=== PATIENT | male | born 1935 | race Caucasian/White ===

== ENCOUNTER 2025-02-24 22:39 | Observation (INO) | payer OTHER, SELFPAY ==
[2025-02-24] VITALS (8 sets, daily range): BP systolic 120–141; BP diastolic 55–68; BMI 27.8
[2025-02-24 19:38] LABS: Hematocrit 39.2 % (39.0-52.0); Hemoglobin 13.4 g/dL (13.0-18.0); Mean Corp Hgb Conc. 34.2 g/dL (33.0-37.0); Mean Corpuscular Volume 97.3 fL (80.0-94.0); Nucleated Red Blood Cells % 0 % (-); Platelet Count 182 10^3/uL (130-400); Red Cell Dist. Width 12.2 % (11.5-14.5)
[2025-02-24 19:56] LABS: ALT (SGPT) 20 U/L (0-50); AST (SGOT) 25 U/L (17-59); Albumin 4.4 g/dl (3.5-5.0); Alkaline Phosphatase 50 U/L (38-126); Blood Urea Nitrogen 22 mg/dl (9-20); Calcium 9.5 mg/dl (8.4-10.2); Carbon Dioxide 27 mmol/L (22-30); Chloride 106 mmol/L (98-107); Estimated Creatinine Clearance 76 ml/min; Glucose 124 mg/dl (70-99); Potassium 4.4 mmol/L (3.5-5.1); Sodium 139 mmol/L (135-145); Total Protein 6.9 g/dl (6.3-8.2); eGFR > 60.00
[2025-02-24 20:07] LABS: Troponin I 0.016 ng/ml
--- NOTE | 2025-02-24 20:16 | ED.GENMED ---
History of Present Illness
<Mari Davila PA-C - Last Filed: 02/25/25 01:39>
General
Chief Complaint: Dizziness
Source: patient
Exam Limitations: none
Time Seen by Provider: 02/24/25 19:51
Nursing documentation reviewed up to this point in time: agreed with
History of Present Illness
History of Present Illness:
Patient is an 89-year-old male with history atrial fibrillation on Xarelto who presents emergency department after episode of confusion and weakness at home which started around 630PM. Patient son states that he got up from the dinner table around
630 and walked to the bathroom where he then became acutely confused and stated 'I am not sure why came here I do not have to go to the bathroom '. Patient son then states that he became extremely weak and was having difficulties walking. They
laid him on the ground and put his legs up. They did take his blood pressure and apparently was in the 100s/60s. Patient son states it was not obvious if 1 side of his body was weaker or overall generalized weakness.
His symptoms did improve while en route via EMS.
He denies any headache, neck pain, chest pain, shortness of breath, changes in vision. No fever or chills.
Patient states that his left leg may seem slightly weaker although at this may be chronic. 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
Patient does take Xarelto for atrial fibrillation although apparently is relatively noncompliant.
Past History
<Mari Davila PA-C - Last Filed: 02/25/25 01:39>
Past History
ED Past Medical History: Hypercholesterolemia and Hypothyroidism
Social History
Living: with family
Employment: Retired
Review of Systems
<Mari Davila PA-C - Last Filed: 02/25/25 01:39>
Review of Systems
Allergies reviewed?: Yes
All Other Systems: ROS reviewed and negative except as documented in HPI and ROS
Phy Exam
<Mari Davila PA-C - Last Filed: 02/25/25 01:39>
Physical Exam
Physical Exam:
Vitals: Patient's vital signs are stable. Afebrile
General: Patient is in no acute distress
Skin: Warm and dry, no rashes or lesions
Head: Normocephalic, atraumatic
Eyes: Sclera nonicteric. EOMs intact. No nystagmus.
Throat: Protecting airway
Neck: Normal ROM, no cervical spine tenderness, no meningismus
Cardiac: Regular rate and rhythm, no murmurs.
Pulm: Normal respiratory effort, no wheezes, rales, rhonchi heard on exam
Abdomen: Abdomen soft and nontender.
Extremities: Paralysis of left upper extremity. No drift in lower extremities. No evidence of cyanosis or edema
Neuro: AAOx3. CN II-XII grossly intact. No focal neurologic deficits. Fluent speech. Normal cerebellar exam. No facial droop.
Psychiatric: Normal affect.
Course
<Mari Davila PA-C - Last Filed: 02/25/25 01:39>
Orders/Labs/Results
Orders:
Orders
02/24/25 19:17
Electrocardiogram (*1) Urgent
Reason for Study: Other
Other Reason for Exam: dizzy
EKG- Treatment ONCE
02/24/25 19:29
Complete Blood Count/With Diff Urgent
Comprehensive Metabolic Panel Urgent
Troponin I Urgent
02/24/25 20:14
Electrocardiogram (*1) Urgent
Reason for Study: Fatigue / Weakness
EKG- Treatment ONCE
02/24/25 20:21
CT Head W/o Iv Contrast Urgent
Comment:
Reason For Exam: Weakness, AMS on eliquis
02/24/25 21:20
Urinalysis Reflex To Culture Urgent
Date Specimen was Collected: 02/24/25
Time Specimen was Collected: 21:18
Urine Microscopic Reflex Cult Urgent
02/24/25 22:26
Admit/Transfer Patient As Directed
Co-Sign Provider:
Level of Care: Observation services
Assign to:: Telemetry
Physician / Group: Rashard
Diagnosis: TIA / Syncope
Reason for Telemetry: Syncope
Date to Stop Telemetry: 02/26/25
Time to Stop Telemetry: 11:00
02/24/25 22:27
PRN Pain Medication Management As Directed
May give lesser potent ordered pain med per pt: Yes
preference::
Protocol:: Medication orders for pain may be administered in a
manner that supports deferring to patient preference
when the pt is:
- Requesting an ordered lesser potent pain medication.
Least to most potent pain medications are defined
as: acetaminophen < NSAID < tramadol < opioids
(morphine, oxycodone, hydromorphone).
- Requesting a lesser dose of the same medication IF
ORDERED.
- Requesting a less intrusive route of administration
if both routes are prescribed by the provider (PO <
IV).
02/24/25 22:28
Code Status As Directed
Resuscitation Status: Full Code
02/25/25 00:27
Acetaminophen [Tylenol/Feverall] 650 mg RECTAL Q4HPRN PRN
Acetaminophen [Tylenol] 650 mg PO Q4HPRN PRN
02/25/25 00:27
Echo 2D MMode Color/Doppler Routine
Reason for Study: stroke/TIA, possible syncope
Case Management Consult ONCE
Case Management Consult: Discharge Planning
Comment: stroke/tia
Consult Notification Routine
Specialty to Notify: Neurology
DIETARY IP CONSULT Routine
Reason for Consult: stroke/TIA
NEUROLOGY CONSULT Routine
Consulting Provider: Riya Forrester
Was physician already notified: No
Reason for consult: Transient Confusion
Knife Changer Routine
MA [place] Routine
Comment:
Reason For Exam: stroke/TIA
Recent pill cam endoscopy?: No
MA Neck With Contrast Routine
Comment:
Reason For Exam: stroke/TIA
Recent pill cam endoscopy?: No
MR Brain Without Contrast Routine
Comment:
Reason For Exam: stroke/TIA
Recent pill cam endoscopy?: No
Activity As Directed
Activity Level: Out of Bed-Early Mobility
With Assistance
Anti-embolism (RENATA) Hose As Directed
Type: Knee high
NIH Stroke Scale As Directed
Directions: Per protocol
Comment: every shift and with any change in condition or mental status
Neurological Checks As Directed
Frequency: q4h
Additional Instructions:: q4h x 24h upon admission to the floor, then qshift & with any change in condition
and mental status
Patient Education As Directed
Type: Stroke education packet
Comment: provide to patient and family
Pneumatic Compression Sleeves As Directed
Type: Knee high
Swallow Screening CVA/TIA ONLY As Directed
Comment: NPO until swallowing screening completed
If patient FAILS swallow screening:: NPO, Speech Therapy consult, Aspiration Precautions
If patient PASSES swallow screening, diet:: Cholesterol Lowering
Above diet order entered?: Yes- passed screening
Vital Signs As Directed
Frequency: Per unit guidelines
Ot Eval And Treat Routine
Pt Eval And Treat Routine
Activity Level: Out of Bed-Early Mobility
Speech Therapy Eval & Treat Routine
DX Deep Vein Thrombosis Video Routine
02/25/25 06:00
Basic Metabolic Panel IN AM
Cardiovascular Evaluation IN AM
Complete Blood Count/No Diff IN AM
Glycohemoglobin (HgbA1c) IN AM
Magnesium IN AM
TSH Reflex To Free T4 IN AM
02/25/25 08:00
Aspirin Chewable [Low Strength Aspirin] 81 mg PO DAILY
02/25/25 18:00
Atorvastatin [Lipitor] 20 mg PO QPM
02/26/25 11:00
DC Protocol for Telemetry ONCE
Abnormal Lab Results
02/24/25 02/24/25
19:29 21:20
RBC 4.03 L 10^6/uL
(4.70-6.10)
MCV 97.3 H fL
(80.0-94.0)
MCH 33.3 H pg
(27.0-31.0)
Absolute Lymphs (auto) 0.8 L 10^3/uL
(1.2-3.4)
Neutrophils % 75.4 H %
(42.2-75.2)
Lymphocytes % 13.2 L %
(20.5-51.1)
Monocytes % 9.7 H %
(1.7-9.3)
BUN 22 H mg/dl
(9-20)
Glucose 124 H mg/dl
(70-99)
Ur Occult Blood Reflex 2+ A
(Negative)
Urine Urobilinogen 2+ A
(Neg - 1+)
Urine RBC 16-20 A /HPF
(0-2)
Urine Bacteria (Reflex) Few A
(Negative)
Urine Albumin (Reflex) 1+ A
(Neg - Trace)
02/24/25 19:29
02/24/25 19:29
Vital Signs
Initial and Last Documented VS:
Initial Vital Signs
Pulse Resp
64 17
02/24/25 19:15 02/24/25 19:15
Last Documented Vital Signs
Temp Pulse Resp BP Pulse Ox
98.5 F 66 18 132/71 96
02/24/25 23:51 02/25/25 00:30 02/25/25 00:30 02/25/25 00:30 02/25/25 01:13
<Harvey Argueta, DO - Last Filed: 02/24/25 21:10>
Orders/Labs/Results
Orders:
Orders
02/24/25 19:17
Electrocardiogram (*1) Urgent
Reason for Study: Other
Other Reason for Exam: dizzy
EKG- Treatment ONCE
02/24/25 19:29
Complete Blood Count/With Diff Urgent
Comprehensive Metabolic Panel Urgent
Troponin I Urgent
02/24/25 20:14
Electrocardiogram (*1) Urgent
Reason for Study: Fatigue / Weakness
EKG- Treatment ONCE
02/24/25 20:21
CT Head W/o Iv Contrast Urgent
Comment:
Reason For Exam: Weakness, AMS on eliquis
02/24/25 21:20
Urinalysis Reflex To Culture Urgent
Date Specimen was Collected: 02/24/25
Time Specimen was Collected: 21:18
Urine Microscopic Reflex Cult Urgent
02/24/25 22:26
Admit/Transfer Patient As Directed
Co-Sign Provider:
Level of Care: Observation services
Assign to:: Telemetry
Physician / Group: Rashard
Diagnosis: TIA / Syncope
Reason for Telemetry: Syncope
Date to Stop Telemetry: 02/26/25
Time to Stop Telemetry: 11:00
02/24/25 22:27
PRN Pain Medication Management As Directed
May give lesser potent ordered pain med per pt: Yes
preference::
Protocol:: Medication orders for pain may be administered in a
manner that supports deferring to patient preference
when the pt is:
- Requesting an ordered lesser potent pain medication.
Least to most potent pain medications are defined
as: acetaminophen < NSAID < tramadol < opioids
(morphine, oxycodone, hydromorphone).
- Requesting a lesser dose of the same medication IF
ORDERED.
- Requesting a less intrusive route of administration
if both routes are prescribed by the provider (PO <
IV).
02/24/25 22:28
Code Status As Directed
Resuscitation Status: Full Code
02/25/25 00:27
Acetaminophen [Tylenol/Feverall] 650 mg RECTAL Q4HPRN PRN
Acetaminophen [Tylenol] 650 mg PO Q4HPRN PRN
02/25/25 00:27
Echo 2D MMode Color/Doppler Routine
Reason for Study: stroke/TIA, possible syncope
Case Management Consult ONCE
Case Management Consult: Discharge Planning
Comment: stroke/tia
Consult Notification Routine
Specialty to Notify: Neurology
DIETARY IP CONSULT Routine
Reason for Consult: stroke/TIA
NEUROLOGY CONSULT Routine
Consulting Provider: Riya Forrester
Was physician already notified: No
Reason for consult: Transient Confusion
Knife Changer Routine
[place] Routine
Comment:
Reason For Exam: stroke/TIA
Recent pill cam endoscopy?: No
MA Neck With Contrast Routine
Comment:
Reason For Exam: stroke/TIA
Recent pill cam endoscopy?: No
MR Brain Without Contrast Routine
Comment:
Reason For Exam: stroke/TIA
Recent pill cam endoscopy?: No
Activity As Directed
Activity Level: Out of Bed-Early Mobility
With Assistance
Anti-embolism (RENATA) Hose As Directed
Type: Knee high
NIH Stroke Scale As Directed
Directions: Per protocol
Comment: every shift and with any change in condition or mental status
Neurological Checks As Directed
Frequency: q4h
Additional Instructions:: q4h x 24h upon admission to the floor, then qshift & with any change in condition
and mental status
Patient Education As Directed
Type: Stroke education packet
Comment: provide to patient and family
Pneumatic Compression Sleeves As Directed
Type: Knee high
Swallow Screening CVA/TIA ONLY As Directed
Comment: NPO until swallowing screening completed
If patient FAILS swallow screening:: NPO, Speech Therapy consult, Aspiration Precautions
If patient PASSES swallow screening, diet:: Cholesterol Lowering
Above diet order entered?: Yes- passed screening
Vital Signs As Directed
Frequency: Per unit guidelines
Ot Eval And Treat Routine
Pt Eval And Treat Routine
Activity Level: Out of Bed-Early Mobility
Speech Therapy Eval & Treat Routine
DX Deep Vein Thrombosis Video Routine
02/25/25 06:00
Basic Metabolic Panel IN AM
Cardiovascular Evaluation IN AM
Complete Blood Count/No Diff IN AM
Glycohemoglobin (HgbA1c) IN AM
Magnesium IN AM
TSH Reflex To Free T4 IN AM
02/25/25 08:00
Aspirin Chewable [Low Strength Aspirin] 81 mg PO DAILY
02/25/25 18:00
Atorvastatin [Lipitor] 20 mg PO QPM
02/26/25 11:00
DC Protocol for Telemetry ONCE
Abnormal Lab Results
02/24/25 02/24/25
19:29 21:20
RBC 4.03 L 10^6/uL
(4.70-6.10)
MCV 97.3 H fL
(80.0-94.0)
MCH 33.3 H pg
(27.0-31.0)
Absolute Lymphs (auto) 0.8 L 10^3/uL
(1.2-3.4)
Neutrophils % 75.4 H %
(42.2-75.2)
Lymphocytes % 13.2 L %
(20.5-51.1)
Monocytes % 9.7 H %
(1.7-9.3)
BUN 22 H mg/dl
(9-20)
Glucose 124 H mg/dl
(70-99)
Ur Occult Blood Reflex 2+ A
(Negative)
Urine Urobilinogen 2+ A
(Neg - 1+)
Urine RBC 16-20 A /HPF
(0-2)
Urine Bacteria (Reflex) Few A
(Negative)
Urine Albumin (Reflex) 1+ A
(Neg - Trace)
02/24/25 19:29
02/24/25 19:29
Vital Signs
Initial and Last Documented VS:
Initial Vital Signs
Pulse Resp
64 17
02/24/25 19:15 02/24/25 19:15
Last Documented Vital Signs
Temp Pulse Resp BP Pulse Ox
98.5 F 66 18 132/71 96
02/24/25 23:51 02/25/25 00:30 02/25/25 00:30 02/25/25 00:30 02/25/25 01:13
<Mari Davila PA-C - Last Filed: 02/25/25 01:39>
MDM/Problems Addressed
Differential Diagnosis Includes:
Not limited to: TIA, CVA, ACS, vasovagal near syncope, orthostatic near syncope, acute dehydration, UTI, etc.
MDM/Problems Addressed:
89-year-old male with history as documented presenting after brief episode of confusion and weakness at home. Symptoms resolved prior to arrival to ED. No history of recent head trauma. No associated chest pain, shortness of breath. Vital stable
on arrival. On exam�patient alert and oriented x 3 with no focal neurologic deficits. Normal cerebellar exam chronic paralysis of left upper extremity noted he has an NIH score of 0. Cardio/pulmonary assessment unremarkable. Patient is perfusing
well. Differential broad. Possibilities include central process such as CVA, TIA cardiac etiology vs dehydration, etc. Will check labs, UA, head CT. Patient's son does report relative noncompliance with Xarelto and frequent missed doses.
Update: Labs reviewed. CBC and chemistry without clinically significant abnormalities. Troponin negative at 0.016. CT scan without acute intracranial abnormalities. UA pending.
Ultimately�patient remains well and comfortable appearing. He has remained asymptomatic. Workup in ED negative however concern for possible TIA. Lower suspicion for cardiac process. Feel patient should be admitted for further evaluation,
possible MRI in the morning. Patient accepted to hospitalist service in stable condition
Chronic conditions affecting care:
Atrial fibrillation noncompliant with Xarelto,
Acute Exacerbation and/or Progression of Chronic Illness:
N/A
<Mari Davila PA-C - Last Filed: 02/25/25 01:39>
*Radiology
Radiology exam reviewed: preliminary read by ED provider (Head CT reviewed by az-no acute abnormality) and radiology read reviewed
*Pulse Oximetry
SaO2: 98
Oxygen Mode of Delivery: Room air
Patient hypoxic: no
*EKG
Interpreted by ED Provider?: Yes
EKG Intrepretation Date: 02/24/25
Interpretation: abnormal
Comparison EKG: no changes
Heart Rate: 64
Rate: normal
Rhythm: sinus
[place]: left axis deviation
Interval: first degree heart block
QRS Pattern: normal QRS
Ischemia: no ischemia
*Volunteer Coordinator Interpretation
Rate: normal
Interpretation: normal
Heart Rate: 64
Rhythm: sinus
*Critical Care Note
Total Time (30-74mins, 75-104mins- exclusive of procedures): Not Applicable
<Mari Davila PA-C - Last Filed: 02/25/25 01:39>
Patient Management
Discussion with other providers: Hospitalist
Escalation/DeEscalation of care consider admission/obs:
Admit for further workup/monitoring
ED Attending Note
<Mari Davila PA-C - Last Filed: 02/25/25 01:39>
-
Portions of this chart may have been created with voice recognition software.� Occasional wrong word or��sound alike� substitutions may have occurred due to the inherent limitations of voice recognition software.
<Harvey Argueta DO - Last Filed: 02/24/25 21:10>
ED Attending Note
Patient seen and examined by attending physician: Yes
I performed the substantive portion of visit, reviewed & personally made and approve the management plan that is documented in note by myself or BERNARDO.: Yes
ED Attending Note:
I have seen and evaluated the patient with a [id number] encounter. I have spoken to the advance practicer provider and involved in the medical history, the physical exam, medical decision making.
Evaluation and management service: agree unless noted differently below.
Results interpretation: agree unless noted differently below.
Focused HPI: 89-year-old male presenting with concern for possible stroke. Patient was at dinner a few hours ago and he stood up and felt confused. Apparently, patient had a left facial droop. On arrival, patient still had the facial droop and
tingling and questionable weakness in his left leg. However, when I entered the room, all symptoms resolved. Son at bedside stating that his father appears to be at baseline now and the patient is intermittently compliant with his Xarelto for A-fib
Physical exam: Sitting bed comfortably. Heart regular in rhythm. 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 No leg weakness. Sensation grossly intact. No facial droop
Medical Decision Making: Patient does not appear to have any new neurodeficits. They have resolved. Seen CT head and ultimately meant for TIA workup
Discharge Plan
Departure
Patient Disposition: Admit
Date of Disposition: 02/24/25
Time of Disposition: 21:37
Presentation/result/management discussed w/ accepting MD/DO: Hospitalist
Discharge Problem:
TIA (transient ischemic attack)
Interventions
Interventions:
*Risk Screen - Suicide Last Done: 02/24/25 19:18
*General Assessment Last Done: 02/24/25 19:18
*Neglect/Abuse Screening Last Done: 02/24/25 19:18
*ED COVID-19 Vaccine History Last Done: 02/24/25 19:23
*Nursing Disposition Last Done: 02/25/25 00:32
ED- Neurological Assessment Last Done: 02/24/25 20:10
ED- Cardiac Assessment Last Done: 02/24/25 20:23
Discharge Date and Time
Discharge Date/Time: 02/25/25 00:33
[2025-02-24 21:34] LABS: Urine Character Clear (Clear)
[2025-02-24 21:46] LABS: Urine Squamous Cell 0-2 /LPF (Few)
[2025-02-24 21:47] LABS: Urine Red Blood Cell 16-20 /HPF (0-2); Urine White Cell 0-2 /HPF (0-5)
--- NOTE | 2025-02-24 22:32 | HPS.HSE ---
Addendum entered and electronically signed by Edmond Wetzel DO 02/24/25 23:35:
Patient seen and examined independently. Agree with findings and plan as set forth by Lluvia Morrison PA-C.
Patient is an 89y M with PMH significant for PA-Fib and hypothyroidism who presents to ED for evaluation of weakness and confusion. Patient states that he 'passed out' after dinner this evening - though son denies any actual LOC. Family states
that patient became confused this evening after dinner and was noted to be very weak on his feet with difficulty walking. There was no fall, trauma, etc. Family did not witness syncope - though pateint has poor recall of the events immediately
prior to admission.
EMS was called and noted that BP was 100/50 on initial check.
Patient was brought to the ED where there was initially some concern for L sided weakness including facial droop, etc.
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
Shortly after arrival, patient was noted to be at baseline according to his family.
He is currently resting comfortably and has no specific complaints.
Ass:
Weakness / Confusion
Paroxysmal Atrial Fibrillation
Hypothyroidism
Medical Non-Compliance
Plan:
Observe overnight for further evaluation and treatment.
PT / OT evals in the AM.
Monitor for any new / recurrent neurologic symptoms.
MRI in the AM for completeness.
ASA daily for now - need to clarify prescribed meds.
Patient prescribed Xarelto among other medications - but admittedly does not take these.
Varying doses of Xarelto listed in records (though 20mg daily would seem to be appropriate dose).
Original Note:
Family Physician
-
Family Physician: * NONE
Chief Complaint
-
Confusion and Weakness
History of Present Illness
Patient is an 89 y/o male past medical history of paroxysmal atrial fibrillation, hyperlipidemia, and hypothyroidism who presents following an episode of confusin and weakness. Patient seem forgetful and appears to have difficulty with short term
memory. Patient states he thinks he may have passed out. Patient's son was initially present in the ED but no longer available upon my evaluation of the patient. Per ED notes patient was at his son's house this evening for dinner. Reportedly
patient walked into the bathroom and became confused as to why he went into the bathroom, and he did not need use to the families. Patient then became extremely weak with associated difficulty walking. Family laid his down and noted his blood
pressure to be low. Patient reports he has been having episodes of dizziness recently.
Medical History
Past Medical History
Past Medical History: Reports Other
Additional Past Medical History:
Paroxysmal Atrial Fibrillation s/p PVI Ablation
Hyperlipidemia
Hypothyroidism
GERD
Prostate Cancer
Past Surgical History: Reports Other
Additional Past Surgical History:
Bilateral Carpal Tunnel Release
Bilateral Knee Surgery
Spine Surgery
Hernia Repair
Social History
Tobacco: Non-smoker
Family History
Family History: Not pertinent
Allergies / Home Medications
Allergies reflects when Allergies were last updated in [employer].
Home Medications with original date entered in [employer]
Allergy/Medication List:
Medications on admission are unable to be verified or confirmed at this time.
If medication reconciliation has not been performed, why?: Medication List N/A
Review of Systems
-
A 12 point ROS was completed and negative except as noted: Yes
Constitutional: Denies Fever
Respiratory: Denies Cough or Trouble Breathing
Cardiac: Denies Chest Pain or Palpitations
Abdomen/GI: Denies Abdominal Pain, Nausea or Vomiting
Physical Exam
Vital Signs
Vital Signs
Temp Pulse Resp BP Pulse Ox
98.7 F 61 22 141/65 96
02/24/25 19:18 02/24/25 21:45 02/24/25 21:45 02/24/25 21:21 02/24/25 21:21
Physical Exam
General: Comfortable and Conversant
HEENT: Anicteric and Moist mucous membranes
Respiratory: Clear and Non Labored Respirations
Cardiac: S1/S2 and Regular Rhythm
GI: Soft and Non Tender
Rectal: Deferred by Provider
Musculoskeletal: No Clubbing and No Cyanosis
Skin: Warm and Dry
Neuro: Awake, Alert, Oriented and Other (Left upper extremity contacted which patient is reports is chronic; Slight left lower extremity weakness which patient also reports is chronic)
Laboratory Results
-
02/24/25 19:29
02/24/25 19:
Laboratory Results
Total Bilirubin 1.2 mg/dl (0.2-1.3) 02/24/25 19:29
AST 25 U/L (17-59) 02/24/25 19:29
ALT 20 U/L (0-50) 02/24/25 19:29
Alkaline Phosphatase 50 U/L (38-126) 02/24/25 19:29
Troponin I 0.016 ng/ml 02/24/25 19:29
Data Reviewed
-
CT Scan: Report Reviewed by me
Lab Data: Labs Reviewed by me
Impression/Plan
-
Transient Episode of Weakness/Confusion, possible TIA vs Orthostasis/Syncope
-Consult Neurology
-Check Brain MRI
-Check Orthostatic VS
-Check Echocardiogram
-Consult PT/OT
-Continue aspirin
Paroxysmal Atrial Fibrillation
-Monitor on Telemetry
-Unclear if patient is on anticoagulation
Hypothyroidism
-Resume levothyroxine when able to verify dose
DVT proph: SCDs
Code Status: Full Code
Medication list unable to be verified at the time of admission. Will need to obtain medication list from son in AM
[2025-02-25] VITALS (11 sets, daily range): BP systolic 102–148; BP diastolic 50–71; PULSE 56–69; O2SAT 96; BMI 24.7; BMI 27.8
--- NOTE | 2025-02-25 00:40 | PTCARENOTE ---
Patient arrived from the ED via stretcher. Patient ambulated into the room with assistance. AAOx3, VSS. No c/o pain. Passed swallow screen. Patient c/o numbness/tingling to the left lower extremity. Call boland is within reach.
[2025-02-25 07:13] LABS: Hematocrit 36.9 % (39.0-52.0); Hemoglobin 12.6 g/dL (13.0-18.0); Mean Corp Hgb Conc. 34.1 g/dL (33.0-37.0); Mean Corpuscular Volume 96.3 fL (80.0-94.0); Platelet Count 174 10^3/uL (130-400); Red Cell Dist. Width 12.1 % (11.5-14.5)
[2025-02-25 07:38] LABS: Blood Urea Nitrogen 20 mg/dl (9-20); Calcium 9.2 mg/dl (8.4-10.2); Carbon Dioxide 25 mmol/L (22-30); Chloride 106 mmol/L (98-107); Estimated Creatinine Clearance 86 ml/min; Glucose 88 mg/dl (70-99); HDL Cholesterol 40 mg/dl; LDL Cholesterol, Calculated 73 mg/dl; Magnesium 2.1 mg/dl (1.6-2.3); Potassium 4.1 mmol/L (3.5-5.1); Sodium 138 mmol/L (135-145); Very Low Density Lipoprotein 13 mg/dl (0-30); eGFR > 60.00
[2025-02-25] MEDS: LOW STRENGTH ASPIRIN 81 MG PO (07:54)
[2025-02-25 08:53] LABS: Glycohemoglobin (HgbA1c) 5.4 % (4.0-5.6)
--- NOTE | 2025-02-25 08:59 | W.PN.HOSP.TC ---
Addendum entered and electronically signed by Salty Lentz MD 02/25/25 15:53:
Correction, patient is already on Xarelto, and does not need subcu Lovenox for DVT prophylaxis
Original Note:
Today's Communication/Plan
-
see bold
Assessment / Plan
Assessment / Plan
HPI: 9y M with PMH significant for PA-Fib and hypothyroidism who presents to ED for evaluation of weakness and confusion. Patient states that he 'passed out' after dinner this evening - though son denies any actual LOC. Family states that
patient became confused this evening after dinner and was noted to be very weak on his feet with difficulty walking. There was no fall, trauma, etc. Family did not witness syncope - though pateint has poor recall of the events immediately prior to
admission.
Transient episode of decreased responsiveness per son
-Son states that patient was at son's house when after dinner, patient became diaphoretic, white, and exhibited decreased responsiveness
-Son reports that patient is supposed to be on Xarelto 20 mg every afternoon, but he is missing his doses
-Appreciate neurology input, continue Xarelto 20 mg every afternoon, atorvastatin 40 mg at bedtime
-Head CT negative, brain MRI and echocardiogram requested, will also check carotid ultrasound
-LDL 73, hemoglobin A1c 5.4, orthostatic vital signs negative
-PT rec HH
Probable dementia on Aricept
-TSH acceptable, check free B12
-Patient currently residing at [facility], discussed with son, he needs assisted living
-Continue Aricept, recommend official neuro psychiatric testing outpatient
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
- PT/OT recc HH
Paroxysmal Atrial Fibrillation
- Continue Xarelto 20 mg daily
BPH
- Continue Flomax
Hyperlipidemia
- Continue statin
Hypothyroidism
- TSH 4.81, free T4 normal 1.03, continue previous levothyroxine dose
DVT proph: Subcu Lovenox
Code Status: Full Code
Updated son on phone 02/25
Total time spent to see the patient on the floor, examine the patient, review data and lab results, discuss treatment plan with patient, nursing staff around 50 minutes.
Physical Exam
General: No acute distress
HEENT: Normocephalic, Atraumatic, EOMI, MMM
Respiratory: Clear to Auscultation bilaterally
Cardiac: Normal S1/S2, Regular Rate and Rhythm
GI: Soft, Nontender, Nondistended, Normal Bowel Sounds
Extremities: No Clubbing, Cyanosis, or Edema
Neuro: Nonfocal/Grossly Intact
Anticipated Discharge: 24 - 48 hours
Subjective/Interval History
-
Date of Service: February 25, 2025
Patient continues to feel weak. Denies chest pain, denies shortness of breath. No fever, no vomiting.
Objective Data
-
Labs:
Laboratory Results
02/25/25
05:58
WBC 6.8
Hgb 12.6 L
Hct 36.9 L
Plt Count 174
Sodium 138
Potassium 4.1
Chloride 106
Carbon Dioxide 25
BUN 20
Creatinine 0.7
Glucose 88
Calcium 9.2
Vital Signs:
Vital Signs
Temp Pulse Resp BP Pulse Ox
98.9 F 65 18 148/69 98
02/25/25 07:15 02/25/25 07:15 02/25/25 07:15 02/25/25 07:15 02/25/25 07:15
I&O
02/24/25 02/25/25 02/26/25
06:59 06:59 06:59
Intake Total 480 / 480
Output Total 650 / 650
Balance -170 / -170
--- NOTE | 2025-02-25 09:07 | CON.NEURO ---
Addendum entered and electronically signed by Gino Mcmillan MD 02/25/25 17:48:
Studies reviewed.
I have personally examined the patient. I reviewed and agree with the MOTOR HOTEL MANAGER's Note.
My addenda:
Awake, alert, interactive. No acute distress.
Speech intact.
Follows 2-step requests w/ difficulty. No tremor.
Extra-ocular movements grossly intact.
Facial movements full and symmetric. Hearing intact to normal conversational volume.
Normal RUE movements significant contracture of the left upper extremity in flexion contracture.
Neck: full ROM.
Chest: no dyspnea
Heart: no JVD
Ext: (-) Clubbing, (-) Cyanosis, (-) Edema
IMPRESSIONS/RECOMMENDATIONS:
Abrupt onset of change confusion
Continue rivaroxaban and statin therapy
Obtain brain MRI as planned
Patient will require additional blood work for potential metabolic causes for memory loss
Consider EEG
D/W patient
All questions answered.
Will continue to follow patient.
Original Note:
Documented by User: Gracie Zaidi NP 02/25/25 11:27
Neuro Assessment/Plan
Assessment
Patient is an 89 yo left-handed male with PMH significant for PA-Fib and hypothyroidism who presented to [facility] on 02/24/2025 for evaluation of weakness and confusion.
Brain MRI 01/05/2023: No acute infarct. No intracranial mass, mass effect, or abnormal enhancement. Mild to moderate chronic microvascular white matter ischemic disease.
Cervical spine MRI 11/03/2022: Moderate to severe right neuroforaminal stenosis at C7-T1 with suspected impingement upon the exiting right C8 nerve root, increased compared to the prior cervical spine MRI from 2020. Chronic degenerative and
postoperative changes are otherwise similar to prior. Moderate bilateral neuroforaminal stenoses at the C3 through C6 levels.
Head CT 02/24/2025: No acute intracranial abnormality noted.
Labs: Hgb A1C 5.4, TSH 4.81, T4 1.03
Plan
Impressions: abrupt onset of confusion due to TIA/CVA vs dementia vs cardiac arrhythmia due to medication noncompliance
-obtain brain MRI as planned
-goal normoglycemia and normotension
-continue xarelto and statin therapy for secondary stroke prevention
-check lipid panel
-neurochecks and NIHSS per unit guidelines
-ST/OT/PT evaluations
-DVT prophylaxis
-education material to be provided
All questions encouraged and answered, plan of care dicussed with Dr. Mcmillan, hospitalist and patient
Consultation
Order
Date of Consultation: 02/25/25
Requesting Provider: hospitalist
Reason for Consult: confusion
Subjective/Objective
Subjective Data
Date of Service: February 25, 2025
Patient is an 89 yo left-handed male with PMH significant for PA-Fib and hypothyroidism who presented to [facility] on 02/24/2025 for evaluation of weakness and confusion. Patient states that he 'passed out' after dinner this evening - though son denied
any actual LOC. Family states that patient became confused this evening after dinner and was noted to be very weak on his feet with difficulty walking. Per patient, he states he fell and unsure if he hit his head. Per family, there was no fall,
trauma, etc. Family did not witness syncope. EMS was called and noted that BP was 100/50 on initial check. Patient was brought to the ED where there was initially some concern for L sided weakness including facial droop, however he has chronic LUE
weakness/contracture related to cervical spine issue which has been present for several years. Shortly after arrival, patient was noted to be at baseline according to his family. He had a C3-5 laminectomy and disc compression in 2014. In the ED his
head CT showed no acute intracranial abnormality.
On exam, he notes multiple episodes of confusion which are brief and do not last long which started 4-5 years ago. Patient is a poor and unreliable historian. He is not oriented to month or year stating the month is January and the year is 2023. He
does have left upper extremity weakness and flexion contracture. He states this is chronic starting 4-5 years ago. He states he has been compliant with his medications but this remains unclear. Prior to admission per chart, was supposed to be on
xarelto 20 mg and atorvastatin 40 mg. His current TSH is 4.81 and takes levothyroxine 112 mcg daily. Currently on donepezil 5 mg nightly.
Objective Data
Vital Signs
Temp Pulse Resp BP Pulse Ox
98.9 F 65 18 148/69 98
02/25/25 07:15 02/25/25 07:15 02/25/25 07:15 02/25/25 07:15 02/25/25 07:15
Lab Results
02/25/25 05:58
02/25/25 05:58
Sodium 138 mmol/L (135-145) 02/25/25 05:58
Potassium 4.1 mmol/L (3.5-5.1) 02/25/25 05:58
BUN 20 mg/dl (9-20) 02/25/25 05:58
Glucose 88 mg/dl (70-99) 02/25/25 05:58
Calcium 9.2 mg/dl (8.4-10.2) 02/25/25 05:58
LDL Cholesterol, Calc 73 mg/dl 02/25/25 05:58
Patient Allergies
No Known Allergies Allergy (Verified 04/21/23 14:15)
CVA Assessment
Onset of Stroke Symptoms
Onset of symptoms known: Yes
Date of onset of symptoms: 02/24/25
Date last time pt seen normal: 02/24/25
NIH Stroke Score
Level of Consciousness: 0 - Alert
LOC Questions: 2-Neither correct
LOC Commands: 0-Performs both correctly
Best Horizontal Gaze: 0-Normal
Visual Petersen: 0=Normal, no visual loss
Facial Palsy: 0=Normal, symmetrical
Motor - Right Arm: 0=No drift 10 seconds
Motor - Left Arm: UN=Amputation/jointfusion
Motor - Right Le-No drift 5 seconds
Motor - Left Le-No drift 5 seconds
Limb Ataxia: 0-Absent
Sensation: 0-Normal
Best Language: 0-No aphasia
Dysarthria: 0-Normal
Extinction and Inattention: 0-No abnormality
NIH Total Score:: 2
Tenecteplase Contraindications
Inclusion and Exclusion criteria reviewed: Yes
Reasons for NON-Tx with Thrombolytics ABSOLUTE Exclusions: Patient taking oral anticoagulant and last dose within 48 hours
IAT Contraindications: >6 hrs from onset/last seen normal and NIHSS < 6
Modified Rosita Score (MRS)
-
Modified Rosita Scale (mRS): Moderate disability. Requires some help, able to walk unassisted.
Score: 3
Physical Exam
-
General: No Apparent Distress, Comfortable and Appears Stated Age
Neck: Full Range of Motion
Respiratory: No Dyspnea
Cardiac: No JVD
GI: Non-distended
Skin: Unremarkable
Extremities: No Cyanosis and No Edema
Psych: Confused
Extended Neurological Exam
Mood & Affect: Mood Unremarkable
Attention Span & Concentration: Awake, Alert, Interactive, No Difficulty with 2 Step Request and Other (not oriented to month or year, difficulty with holidays)
Tremor: Hand Tremor Absent and Head Tremor Absent
Speech: Quality Unremarkable, Quantity Unremarkable and Rate of Production Unremarkable
Cranial Nerve II: Left Eye: Visual Petersen Grossly Intact
Cranial Nerve II: Right Eye: Visual Petersen Grossly Intact
Cranial Nerves III, IV, : Extraocular Movement: Extraocular Movement Full in all Directions
Cranial Nerve VII: Facial Symmetry: Normal Facial Symmetry
Cranial Nerve VIII: Hearing: Unremarkable Hearing to Normal Conversational Volume
Muscle Strength, Overall: Other (LUE flexion contraction)
Pronator Drift: No Drift in Lower Extremities
Data Reviewed
-
CT Head: Report Reviewed and Image Reviewed
MRI Head: Ordered
Labs: Report Reviewed
Medications
-
Active Medications
Generic Name Dose Route Start Last Admin
Trade Name Freq PRN Reason Stop Dose Admin
Acetaminophen 650 mg 02/25/25 00:27
Acetaminophen 650 Mg Rectal Suppository RECTAL 03/25/25 00:26
Q4HPRN PRN
KINNEY, mild pain, or temp >100.4F
Acetaminophen 650 mg 02/25/25 00:27
Acetaminophen 325 Mg Tablet PO 03/25/25 00:26
Q4HPRN PRN
KINNEY, mild pain, or temp >100.4F
Aspirin 81 mg 02/25/25 08:00 02/25/25 07:54
Aspirin 81 Mg Chewable Tablet PO 03/25/25 07:59 81 mg
DAILY MYLA Administration
Atorvastatin Calcium 20 mg 02/25/25 18:00
Atorvastatin (Lipitor) 20 Mg Tablet PO 03/25/25 17:59
QPM MYLA
Sodium Chloride 0 flush 02/25/25 01:00
Sodium Chloride 0.9% (Flush) Syringe IV 03/25/25 00:59
PER PROTOCOL MYLA
Home Medications
�Medication �Instructions �Recorded
acetaminophen 325 mg tablet 650 mg (2 x 325 mg) PO Q4HPRN PRN 12/12/15
mild pain, KINNEY, temp > 101 F ##0
atorvastatin 20 mg tablet 20 mg PO QPM ##0 12/12/15
levothyroxine 125 mcg tablet 125 mcg PO DAILY AT 0700 ##0 12/12/15
cholecalciferol (vitamin D3) 50 2,000 units PO DAILY Supplement 04/13/17
mcg (2,000 unit) tablet
multivitamin (Daily Multiple 1 ea PO DAILY Supplement 04/13/17
tablet)
aspirin 81 mg tablet,delayed 81 mg PO DAILY Blood Clot 12/03/21
release Prevention/Tx
rivaroxaban 2.5 mg tablet (Xarelto) 2 mg PO BID Blood Clot 01/25/23
Prevention/Tx
silodosin 8 mg capsule 8 mg PO DAILY BPH 01/25/23
trazodone 50 mg tablet 50 mg PO HS PRN sleep 01/25/23
prednisone 10 mg tablet See Rx Instructions .Route 04/21/23
.COMPLEX Neurological Condition
#45 tabs
Past History
Past History
ED Past Medical History: Hypercholesterolemia and Hypothyroidism
Family/Social History
Living: with family
Employment: Retired

Documented by User: Gino Mcmillan MD 02/25/25 17:44
CVA Assessment
NIH Stroke Score
NIH Total Score:: 2
Modified Rosita Score (MRS)
-
Score: 3
--- NOTE | 2025-02-25 10:18 | PTOTSP ---
RECOVERY ADVOCATE Evaluations
Patient with mild mixed aphasia with notable changes to verbal expressive language (anomia, filler use, circumlocution), auditory comprehension (mild breakdown with complex language), and reading (omitting beginning of words, substituting letters,
variable errors; phonemic paraphasias with oral reading?). Quick Aphasia Battery Form 1 QAB overall =8.03 mild. Patient reported CHRONIC aphasia and declined outpatient evaluation/therapy.
Patient with signs concerning for possible WFL-mild pharyngoesophageal dysphagia but has not had any known complications from dysphagia at this time.
Recommend:
1. IDDSI 7 Regular, Thin Liquids
2. Medications as best tolerated
3. Strategies: general aspiration and reflux precautions
4. Outpatient RECOVERY ADVOCATE evaluation and treatment warranted. Patient declined.
[2025-02-25] MEDS: LIPITOR 20 MG PO (17:27)
[2025-02-25] MEDS: XARELTO 20 MG PO (17:27)
--- NOTE | 2025-02-25 17:35 | CM ---
Alert awake oriented patient who lives at assisted living at [facility]. He is assisted in all activities of daily living.He was offered VN he declined need.Uses walker at home.SIBLEY letter given explained. Pt declined to sign.
PT at [facility] / No SNF history
Pharmacy [facility]
PCP none Wellness Resident MD information given
PLAN Home Declined VN
[2025-02-25] MEDS: VITAMIN B1 100 MG PO (18:17)
[2025-02-25] MEDS: ARICEPT 5 MG PO (22:24)
[2025-02-26 03:03] VITALS: BP 108/70
[2025-02-26] MEDS: SYNTHROID 112 MCG PO (05:54)
[2025-02-26] MEDS: VITAMIN B1 100 MG PO (07:44)
--- NOTE | 2025-02-26 07:51 | W.PN.HOSP.TC ---
Addendum entered and electronically signed by Juan Hooper MD 02/28/25 14:06:
Read, reviewed, and agree. See same day progress note for additional details. Time spent coordinating care, DC planning, review of DC plan of care with resident, transition of care, review of records in EMR, med rec, consults, notes, d/w
consultants, nursing, family, and CM mins
More than 30 minutes spent in discharge including
Final examination of the patient
Summarizing hospital stay
Instructions for continuing care to all relevant caregivers
Preparation of discharge records, prescriptions, and referral forms
Total time spent (in minutes): 32
Original Note:
Today's Communication/Plan
-
Brain MRI
Carotid US
OK to d/c home if above imaging is wnl, pending final recs from specialists
Assessment / Plan
Assessment / Plan
89y M with PMH significant for PA-Fib and hypothyroidism who presents to ED for evaluation of weakness and confusion. Family states that patient became confused this evening after dinner and was noted to be very weak on his feet with difficulty
walking.
#Transient AMS
- Son states that patient was at son's house when after dinner, patient became diaphoretic, white, and exhibited decreased responsiveness, no fall or LOC
- Son reports that patient is supposed to be on Xarelto 20 mg every afternoon, but he is missing his doses
- Head CT showing no acute intracranial abnormality
- orthostatic vital signs negative
- cleared by speech for regular diet with thin liquids
- no acute neurological deficits on exam
- Brain MRI pending
- Carotid US pending
- Neurology following
- Can defer EEG to outpatient
- Concern for acute CVA/TIA low; if above imaging is unremarkable can likely d/c today
#Dementia
#Cognitive Decline/Memory Loss
- Patient currently residing at [facility], discussed with son, he needs assisted living
- c/w Donepezil
#Chronic LUE weakness/contracture
- secondary to cervicalgia from surgery vs. prior CVA
- PT/OT recc HH -- pt declined per CM
#Paroxysmal Atrial Fibrillation
- ECG done on admission shows SR with 1st Degree AV Block, present in 2022
- confirmation with op records from 09/26/2024 show Xarelto 20mg qd, that is most recent documentation
- Continue Xarelto 20 mg daily
#BPH
- chart review of external documents shows patient is on 0.4mg x2 capsules; current dose of 0.8 is correct for him
- Continue Flomax at 0.8mg
#Hyperlipidemia
- c/w statin
#Hypothyroidism
- TSH 4.81, free T4 normal 1.03, continue previous levothyroxine dose
DVT PPx: c/w Xarelto
Code Status: Full Code
Anticipated Discharge: Within 24 hours
Subjective/Interval History
-
Date of Service: February 26, 2025
Patient began crying immediately when I introduced myself this morning. He expresses sadness that his son won't be able to be with him during his testing today. His only complaint today was regarding his dose of Flomax needing to be increased due to
frequent urination -- he says his urologist recently increased the dose to 'two pills' uncertain of the dosage.
Objective Data
-
Vital Signs:
Vital Signs
Temp Pulse Resp BP Pulse Ox
98.4 F 52 18 108/70 94
02/26/25 03:03 02/26/25 03:03 02/26/25 03:03 02/26/25 03:03 02/26/25 03:03
I&O
02/25/25 02/26/25 02/27/25
06:59 06:59 06:59
Intake Total 480 / 480 960 / 960
Output Total 650 / 650 850 / 850
Balance -170 / -170 110 / 110
Review of Systems
-
Unable to obtain full review of systems at this time due to: Dementia
History Source: Patient
All other systems: Reviewed and negative
Constitutional: Reports No Symptoms
EENT: Reports No Symptoms Reported
Respiratory: Reports No Symptoms
Cardiac: Reports No Symptoms
Abdomen/GI: Reports No Symptoms
Breast: Reports N/A
Genitourinary: Reports No Symptoms
Musculoskeletal: Reports No Symptoms
Skin: Reports No Symptoms
Neuro: Reports No Symptoms
Endocrine: Reports No Symptoms
Physical Exam
-
General: Well Developed and Well Nourished
HEENT: Normocephalic, Atraumatic, Moist Mucous Membranes, [place] Conjunctivae, No Ptosis, PERRLA, Nose Appears Normal, Ears Appear Normal, Neck Non Tender and Other
Respiratory: Clear to Auscultation; Negative Wheezes, Rales or Rhonchi
Cardiac: Regular Rhythm and S1/S2; Negative Murmur, Rub or Gallop
Breast: N/A
GI: Soft, Nontender, Nondistended and Normal Bowel Sounds
Rectal: Deferred by Provider
Genito-urinary: No Costovertebral Tender
Musculoskeletal: No Clubbing, No Cyanosis and No Edema
Skin: Warm, Dry and IV Access / Catheter Site
Neuro: Awake, Alert, Nonfocal/Grossly Intact and Other (left arm flexion contracture secondary to cervicalgia; chronic, stable)
Psych: Other (tearful affect)
[2025-02-26 07:58] VITALS: BP 117/68
[2025-02-26 07:59] VITALS: BP 117/68; BP 128/58; BP 138/64
[2025-02-26 08:33] LABS: Folate 18.6 ng/ml (2.76-20); Vitamin B12 664 pg/ml (239-931)
[2025-02-26 09:15] LABS: Hematocrit 41.2 % (39.0-52.0); Hemoglobin 14.0 g/dL (13.0-18.0); Mean Corp Hgb Conc. 34.0 g/dL (33.0-37.0); Mean Corpuscular Volume 96.5 fL (80.0-94.0); Platelet Count 194 10^3/uL (130-400); Red Cell Dist. Width 12.1 % (11.5-14.5)
[2025-02-26 11:02] VITALS: BP 134/58
[2025-02-26 11:11] LABS: Blood Urea Nitrogen 17 mg/dl (9-20); Calcium 10.0 mg/dl (8.4-10.2); Carbon Dioxide 24 mmol/L (22-30); Chloride 107 mmol/L (98-107); Estimated Creatinine Clearance 86 ml/min; Glucose 140 mg/dl (70-99); Potassium 4.2 mmol/L (3.5-5.1); Sodium 138 mmol/L (135-145); eGFR > 60.00
[2025-02-26 15:46] VITALS: BP 119/68; BP 122/60; BP 132/68
[2025-02-26 16:17] VITALS: BP 137/71; BP 147/55; PULSE 61
--- NOTE | 2025-02-26 16:31 | CM ---
MD entered order for discharge.
Spoke with patient he said he was ready for discharge.
[place] son here to drive him home.
Offered VN he declined.
PLAN Home no needs
--- NOTE | 2025-02-26 18:35 | W.DCSUMMARY ---
Discharge Summary
Discharge Data
Date of Admission: 02/24/25
Date of Discharge: 02/26/25
Total time spent discharging patient (in min): >30m
-
Pending Results: No
Hospital Course
Discharging Physician : Dr. Juan Hooper
Disposition : Home
Primary care physician : None
Principal Discharge diagnosis : Transient Altered Mental Status
Chronic Discharge diagnosis : Dementia, cognitive decline/memory loss, chronic left upper extremity weakness/contracture, paroxysmal A-fib, BPH, hyperlipidemia, hypothyroidism
Hospital Course :
89y M with PMH significant for PA-Fib and hypothyroidism who presents to ED for evaluation of weakness and confusion. Family states that patient became confused this evening after dinner and was noted to be very weak on his feet with difficulty
walking.
#Transient AMS
Initial concern for stroke, patient was admitted for further workup. CT head was done which showed no acute intracranial abnormality. There were no acute focal neurological deficits on examination other than chronic left upper extremity
contracture mentioned below. Orthostatic vitals were negative. Patient was seen by speech and cleared for regular diet with thin liquids. Neurology was consulted, brain MRI and carotid ultrasound were ordered. Lipid panel was done which showed
LDL of 73. On hospital day 2, brain MRI and carotid ultrasound were done which showed no acute abnormalities or stenoses (full report below). Patient was offered home health per case management and PT evaluation, however he declined. Ultimately
discharged home. Hospital stay and imaging report findings were discussed with ida Arauz over the phone.
#Dementia
#Cognitive Decline/Memory Loss
Vitamin B12 and folate levels were checked, both were within normal limits. Patient was continued on home dose donepezil.
#Chronic LUE weakness/contracture
Seen by PT OT who recommended home health, however patient declined.
#Paroxysmal Atrial Fibrillation
ECG done on admission showed SR with 1st Degree AV Block, present in 2022. Patient was continued on home dose Xarelto 20 mg daily. No acute cardiovascular symptoms or events during admission.
#BPH
Stable throughout admission. Patient was continued on home dose 0.8 mg of Flomax.
#Hyperlipidemia
Patient was continued on home dose statin.
#Hypothyroidism
TSH 4.81, free T4 normal 1.03; patient was continued on home dose levothyroxine.
Important imaging findings :
CT Head W/o Iv Contrast (02/24/2025):
IMPRESSION:
No acute intracranial abnormality noted.
US Cerebrovascular (02/26/2025):
IMPRESSION: Calcified right carotid bulb plaque, mixed plaque left internal carotid artery. Based on velocity measurements, any internal carotid artery stenosis is less than 50% bilaterally. Antegrade flow bilateral vertebral arteries.
MR Brain Without Contrast (02/26/2027):
IMPRESSION:
1. No MRI evidence for acute infarct or intracranial hemorrhage.
2. 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
3. Severe cortical castanon matter encephalomalacia in the right parietal lobe which is probably secondary to chronic ischemic infarction.
4. Moderate white matter leukoaraiosis in the frontal lobes, parietal lobes, and right occipital lobe.
5. Previous multilevel cervical laminectomies and bilateral posterior instrumentation in the cervical spine.
Procedure findings :
None.
Discharge Plan
-
Patient Disposition: Home (Routine Discharge)
Discharge Diagnosis/Procedures: Transient AMS
Condition: Good
Diet: No restrictions
Activity: As tolerated
Driving Restrictions: As prior to admission
Referrals:
NONE,* [Family Provider, Internal Medicine]
Prescriptions:
Continued
acetaminophen 325 MG tablet
650 mg PO Q4HPRN PRN (Reason: mild pain, KINNEY, temp > 101 F) Qty: 0 0RF
atorvastatin [Lipitor] 40 mg Tablet
40 mg PO DAILY
donepezil 5 mg Tablet
5 mg PO HS
therapeutic multivitamin Tablet
1 tab PO DAILY
tamsulosin [Flomax] 0.4 mg Capsule
0.8 mg PO HS
trazodone 100 mg Tablet
100 mg PO HS
docusate sodium [Colace] 100 mg Capsule
100 mg PO BIDPRN PRN (Reason: constipation)
levothyroxine [Synthroid] 112 mcg Tablet
112 mcg PO DAILY
bupropion HCl 150 mg Tablet Extended Release 24 Hr
150 mg PO DAILY
melatonin 1 mg Tablet
2 mg PO HS
Changed
Xarelto 20 mg Tablet
20 mg PO QPM Qty: 0 0RF
Discharge Orders:
Discharge Patient (As Directed); Ordered 02/26/25
Ordered By: Osmel Quick
Discharge Date and Time
Discharge Date/Time: 02/26/25 16:52
Print Language: WOLOF
[2025-03-01 11:17] LABS: Syphilis/T. pallidum Ab Reflex Negative (Negative)
== END 2025-02-26 16:52 | disposition home or self-care (01) ==
LOC: 4 EAST ACU 22:39
PROVIDERS: Family Medicine; Physician Assistant; Physician Assistant Medical; ADMITTING PHYSICIAN Hospitalist; ATTENDING PHYSICIAN Hospitalist; EMERGENCY PHYSICIAN Student in an Organized Health Care Education/Training Program; OTHER PHYSICIAN Psychiatry & Neurology Neurology
DX: R41.82 Altered mental status, unspecified (principal); F03.90 Unspecified dementia, unspecified severity, without behavioral disturbance, psychotic disturbance, mood disturbance, and anxiety; R29.898 Other symptoms and signs involving the musculoskeletal system; M24.59 Contracture, other specified joint; I48.0 Paroxysmal atrial fibrillation; N40.1 Benign prostatic hyperplasia with lower urinary tract symptoms; K21.9 Gastro-esophageal reflux disease without esophagitis; E78.00 Pure hypercholesterolemia, unspecified; E03.9 Hypothyroidism, unspecified; I44.0 Atrioventricular block, first degree; M48.02 Spinal stenosis, cervical region; Z60.2 Problems related to living alone; Z79.01 Long term (current) use of anticoagulants; Z79.899 Other long term (current) drug therapy; Z91.148 Patient's other noncompliance with medication regimen for other reason
CPT/HCPCS: 70450; 70551; 80048; 80053; 80061; 81003; 81015; 82607; 82746; 83036; 83735; 84439; 84443; 84484; 85025; 85027; 86780; 87389; 92523; 92610; 93005; 93306; 93880; 97116; 97162; 97166; 97535; 99285; 99406; G0378